=== PATIENT | female | born 1985 | race Caucasian/White ===

== ENCOUNTER 2025-07-06 11:59 | Emergency (ER) | payer MEDICARE, MEDICAID, SELFPAY ==
[2025-07-06 12:05] VITALS: PULSE 97; RESP 22; TEMP 36.7; O2SAT 99
[2025-07-06] MEDS: Methadone Liquid 10 MG/ML 180 MG PO (13:29)
[2025-07-06 13:52] VITALS: BP 132/89; RESP 22; O2SAT 97
--- NOTE | 2025-07-07 08:49 | ED.GENADUL_ITS ---
Discharge Plan Disposition Patient Disposition: Home Condition: Stable Discharge Details Clinical Impression: Opiate withdrawal Primary Care Provider: Lluvia Wright ED Provider: Tara Drummond Home Meds and New Rx's Prescriptions: Continued methadone 10 mg/mL concentrate 180 mg PO DAILY Discharge Instructions Instructions: Prescription Drug Withdrawal (DC) Additional Instructions: You have been given your dose of methadone today Please follow-up with the clinic tomorrow Return earlier should you have new or worsening complaints Referrals: Lluvia Wright [Primary Care Provider, Medicine] Discharge Data Discharge Date/Time-TO BE ENTERED AT DEPARTURE: 07/06/25 14:23 HPI General Date/Time Provider Initiated Documentation: 07/06/25 12:21 . HPI Narrative: This 39-year-old female presents with acute opiate withdrawal. She states she feels like she has bugs crawling all over her . She states she is sweaty and feels nauseous and vomited once. Secondary to transportation issues she was unable to go to the methadone clinic yesterday and missed the appointment today and was told to come to the emergency department for her dose. She goes to the [facility] in [place]. She denies any additional substance use. Denies any chance of chest pain, shortness of breath, or any additional complaints at this time. Related Data Home Medications ?Medication ?Instructions ?Recorded ?Confirmed methadone 10 mg/mL oral concentrate 180 mg PO DAILY 07/06/25 General Stated Complaint: DrugWithdr/MAT VILLA: 3 Exam Narrative Exam Narrative: Alert, agitated, diaphoretic, anxious cardiac rate rhythm regular no respiratory distress no abdominal tenderness ambulatory with steady gait oriented x 3 Course Vital Signs Vital signs: Vital Signs Temperature 36.7 C 07/06/25 12:05 Pulse 97 H 07/06/25 12:05 Respiratory Rate 22 07/06/25 12:05 Pulse Oximetry 99 07/06/25 12:05 Temperature 36.7 C 07/06/25 12:05 Temperature Source Oral 07/06/25 12:05 Pulse 97 H 07/06/25 12:05 Respiratory Rate 22 07/06/25 13:52 Respiratory Pattern Normal 07/06/25 13:00 Blood Pressure 132/89 07/06/25 13:52 Blood Pressure Mean 103 07/06/25 13:52 Pulse Oximetry 97 07/06/25 13:52 Oxygen Delivery Method Room Air 07/06/25 13:52 Oxygen Flow Rate 0 07/06/25 13:52 Comment unable to get BP patient not able to sit still 07/06/25 12:05 Medical Decision Making 39-year-old female presenting with acute opiate withdrawal secondary to missing 2 doses of methadone. Her dose of 180 mg was confirmed with the [facility] clinic and was administered in the emergency department. This administration she was observed for approximately half an hour and her symptoms abated. She is feeling significant improvement and requesting discharge home. We discussed transportation and the importance of going to the [facility] clinic tomorrow. Return precautions reviewed and patient expressed understanding PFSH All Active Problems (Updated 07/06/25 @ 13:46 by EVA Oliver) Opiate withdrawal (Acute) Social History Smoking/Tobacco Use Status: Current every day Tobacco Type: cigarettes Smoking risk assessment performed?: Yes Alcohol Intake: former Substance use type: does not use
== END 2025-07-06 14:23 | disposition home or self-care (01) ==
PROVIDERS: Emergency Provider Physician Assistant; PCP Family Medicine
DX: F11.93 Opioid use, unspecified with withdrawal (principal); R11.2 Nausea with vomiting, unspecified
CPT/HCPCS: 99283 ×2

== ENCOUNTER 2025-08-23 10:40 | Emergency (ER) | payer SELFPAY ==
[2025-08-23 10:49] VITALS: BP 184/82; PULSE 87; RESP 18; TEMP 36.9; O2SAT 98
--- NOTE | 2025-08-23 15:09 | ED.GENADUL_ITS ---
Discharge Plan Discharge Details Chief Complaint: DrugWithdr/MAT Primary Care Provider: Lluvia Wright ED Provider: Tara Drummond Home Meds and New Rx's Prescriptions: No Action methadone 10 mg/mL concentrate 180 mg PO DAILY HPI General Date/Time Provider Initiated Documentation: 08/23/25 10:59 . HPI Narrative: 39-year-old female presenting for methadone administration. States her last dose was yesterday. Patient reportedly missed her dosing today as she thought the clinic was open until 1130 and the hours were abbreviated. Denies any current complaints or use of illicit substances. Related Data Home Medications ?Medication ?Instructions ?Recorded ?Confirmed methadone 10 mg/mL oral concentrate 180 mg PO DAILY 08/23/25 Allergies Allergy/AdvReac Type Severity Reaction Status Date / Time No Known Allergies Allergy Unverified 08/23/25 10:51 General Stated Complaint: DrugWithdr/MAT VILLA: 4 Exam Narrative Exam Narrative: Alert, oriented, no acute distress answering questions appropriately Course Vital Signs Vital signs: Vital Signs Temperature 36.9 C 08/23/25 10:49 Pulse 87 08/23/25 10:49 Respiratory Rate 18 08/23/25 10:49 Blood Pressure 184/82 H 08/23/25 10:49 Pulse Oximetry 98 08/23/25 10:49 Temperature 36.9 C 08/23/25 10:49 Pulse 87 08/23/25 10:49 Respiratory Rate 18 08/23/25 10:49 Blood Pressure 184/82 H 08/23/25 10:49 Pulse Oximetry 98 08/23/25 10:49 Pain Level 0 08/23/25 10:49 Medical Decision Making We attempted to contact [facility] to confirm methadone dosing. Patient came via From [place] and was unable to continue to wait in our facility. There is approximately 45-minute delay and we had not received confirmation call. Unfortunately patient had to leave secondary to having a cab and transportation issues. She did not receive her dose of methadone secondary to time constraints and walked out of the hospital stating you will see me back in a body bag . Patient walked out at this moment alert, oriented, decisional capacity I was unable to get any additional information. PFSH Social History Smoking/Tobacco Use Status: Current every day Tobacco Type: cigarettes Smoking risk assessment performed?: Yes Alcohol Intake: former Substance use type: does not use
== END 2025-08-23 12:05 | disposition left against medical advice (07) ==
LOC: ER 11:42
PROVIDERS: Emergency Provider Physician Assistant; PCP Family Medicine
DX: Z53.21 Procedure and treatment not carried out due to patient leaving prior to being seen by health care provider (principal)

== ENCOUNTER 2025-09-24 12:14 | Emergency (ER) | payer MEDICARE, MEDICAID, SELFPAY ==
[2025-09-24 12:26] VITALS: BP 128/80; PULSE 90; RESP 20; TEMP 37.1; O2SAT 95
[2025-09-24 12:30] VITALS: BP 128/80; PULSE 90; RESP 20; TEMP 37.1; O2SAT 95
--- NOTE | 2025-09-24 12:30 | RT.EKG_ITS ---
APPROVED REPORT Exam: Resting ECG Reason for Exam: methadone Patient Location: E HR:75 bpm ECG Measurements Heart Rate 75 AXIS MD 146 P 63 QRSd 106 QRS 3 QT 351 T 87 QTc 393 Conclusion Sinus rhythm...normal P axis, V-rate 60- 99 Probable left atrial enlargement...P >50mS, <-0.10mV V1 Nonspecific T abnormalities, lateral leads...T <-0.10mV, I aVL V5 V6
[2025-09-24 12:58] LABS: Abs Immature Grans 0.13 10^3/uL (0.0-0.06); HCT 36.2 % (36.0-46.0); HGB 12.4 g/dL (11.2-15.7); Immature Grans % 1.4 %; MCH 30.8 pg (27.0-33.0); MCHC 34.3 % (32.0-36.0); MCV 90 fL (80-95); MPV 9.0 fL (8.0-11.0); Platelet Count 356 10^3/uL (130-400); RBC 4.03 10^6/uL (3.93-5.22); RDW 13.1 % (11.7-14.6); RDW-SD 43.2 fL; WBC 9.52 10^3/uL (4.4-10.8)
[2025-09-24 13:16] LABS: Magnesium 1.6 mg/dL (1.6-2.6)
[2025-09-24 13:28] LABS: ALT 28 U/L (10-49); AST 28 U/L (<34); Albumin 4.3 g/dL (3.4-5.0); Alkaline Phosphatase 93 U/L (46-116); Anion Gap 9.5 mmol/L (3-11); BUN 9 mg/dL (9-23); Bilirubin, Total 0.30 mg/dL (0.2-1.2); CO2 23.5 mmol/L (20.0-31.0); Calcium 9.4 mg/dL (8.3-10.6); Chloride 104 mmol/L (98-107); Glucose 121 mg/dL (74-106); Potassium 2.9 mmol/L (3.5-5.1); Sodium 137 mmol/L (136-145); TSH (W/Ref FT4) 0.73 uIU/mL (0.55-4.78); Total Protein 7.8 g/dL (5.7-8.2)
[2025-09-24 13:52] LABS: Cannabinoids THC Negative (Negative)
[2025-09-24 13:52] LABS: Acetaminophen < 2 ug/mL (10-20)
[2025-09-24] MEDS: POTASSIUM CHLORIDE 20 MEQ/100 ML BAG 50 MEQ IV_INF (14:11)
[2025-09-24] MEDS: Potassium Chloride 20 MEQ TABCR PO (14:18)
[2025-09-24 14:26] LABS: COVID-19 PCR Negative (Negative); RSV PCR Negative (Negative)
[2025-09-24] MEDS: Methadone Liquid 10 MG/ML 180 MG PO (14:30)
--- NOTE | 2025-09-24 14:30 | DI.RAD_ITS ---
Exam(s) XR CHEST 2V PA LATERAL EXAM: XR CHEST 2V PA LATERAL CLINICAL HISTORY: cough. TECHNIQUE: 2D digital imaging was performed. COMPARISON: No exams were available for comparison FINDINGS: 2 views: Heart size is normal. The mediastinum is not widened. Lungs are clear. No infiltrates nor pleural effusions. IMPRESSION: No acute pulmonary findings. DATA REPOSITORY: RADIATION DOSE DELIVERED:
--- NOTE | 2025-09-24 14:35 | W.ED.GENAD ---
Discharge Plan Disposition Patient Disposition: Home Condition: Stable Discharge Details Clinical Impression: Methadone withdrawal, Anxiety, Hypokalemia, Cough Primary Care Provider: Lluvia Wright ED Provider: Juni Kilgore Home Meds and New Rx's Prescriptions: Continued methadone 10 mg/mL concentrate 180 mg PO DAILY ibuprofen 800 mg tablet 800 mg PO BID PRN Patient Comments: TAKE 1 TABLET BY MOUTH TWICE DAILY NEEDED FOR PAIN. CONTACT CLINIC TO SCHEDULE AN APPOINTMENT prochlorperazine maleate 10 mg tablet 10 mg PO TID PRN gabapentin 800 mg tablet 800 mg PO TID Patient Comments: TAKE 1 TABLET BY MOUTH THREE TIMES DAILY pantoprazole 40 mg tablet,delayed release (DR/EC) 40 mg PO ONCE Patient Comments: take 1 tablet by mouth once daily mirtazapine 45 mg tablet 45 mg PO DAILY Patient Comments: take 1 tablet by mouth daily metoprolol succinate 25 mg tablet extended release 24 hr 25 mg PO DAILY Patient Comments: take 1 tablet by mouth once daily lisinopril 40 mg tablet 40 mg PO DAILY Patient Comments: take 1 tablet by mouth once daily prazosin 2 mg capsule 2 mg PO QHS Patient Comments: take 1 capsule by mouth daily at bedtime dextroamphetamine-amphetamine [Adderall] 30 mg tablet 30 mg PO BID Rx Instructions: administer doses at least 4-6 hours apart Discharge Instructions Instructions: Hypokalemia, Methadone Additional Instructions: Please take your medications including antihypertensives as prescribed. You are welcome to go to [facility] for methadone dosing tomorrow from 6 AM till 10 AM. Please stop taking cough medicines. Please follow-up with your primary care physician. Return to the emergency department immediately for any worsening or new concerning symptoms. Stand Alone Forms: Portal Information HPI General Mode of arrival: ambulatory. Date/Time Provider Initiated Documentation: 09/24/25 12:21. Limitations to Documentation: no limitations. Information obtained by: patient. HPI Narrative: HISTORY OF PRESENT ILLNESS This is a 39-year-old female with a history of multiple sclerosis, substance abuse, on methadone, presenting from methadone clinic with anxiety, complaint of opioid withdrawal, recent respiratory illness with cough. Patient referred by methadone clinic provider with concern for potential serotonin syndrome or other toxidrome. Patient reports that she has been unwell since 09/22/2025, with symptoms including a persistent cough and congestion. She sought medical attention at [facility] on 09/22/2025 due to these symptoms and was diagnosed with rhinovirus. Patient states she continues to have cough and she experiences shortness of breath upon exertion. A CT scan performed on 09/22/2025 revealed no abnormalities per her report. She has been self-medicating with DayQuil and NyQuil every 4 hours for the past week, which she finds beneficial in reducing her cough frequency. Her last dose of these medications was taken this morning. The patient is currently experiencing withdrawal symptoms from methadone, having missed her doses on 09/20/2025 and 09/23/2025. She reports no use of illicit substances during this period. She smokes cigarettes but does not consume alcohol. She is on Adderall. Patient denies changes in her medication. No herbal supplements. She has been taking same dose of mirtazapine for years. She also reports high levels of anxiety and stress, which she believes are exacerbated by her current situation. She has been under significant stress for the past two weeks, which has affected her ability to concentrate. She mentions transportation problems as a significant factor contributing to her anxiety. She has a history of multiple sclerosis (MS), which occasionally causes involuntary movements in her hands and feet. These symptoms were particularly pronounced on 09/22/2025. Patient has not been taking antihypertensives as prescribed. Related Data Home Medications Medication Instructions Recorded Confirmed methadone 10 mg/mL oral concentrate 180 mg PO DAILY 07/06/25 09/24/25 dextroamphetamine-amphetamine 30 30 mg PO BID 09/24/25 09/24/25 mg tablet (Adderall) gabapentin 800 mg tablet 800 mg PO TID 09/24/25 09/24/25 ibuprofen 800 mg tablet 800 mg PO BID PRN 09/24/25 09/24/25 lisinopril 40 mg tablet 40 mg PO DAILY 09/24/25 09/24/25 metoprolol succinate 25 mg 25 mg PO DAILY 09/24/25 09/24/25 tablet,extended release 24 hr mirtazapine 45 mg tablet 45 mg PO DAILY 09/24/25 09/24/25 pantoprazole 40 mg tablet,delayed 40 mg PO ONCE 09/24/25 09/24/25 release prazosin 2 mg capsule 2 mg PO QHS 09/24/25 09/24/25 prochlorperazine maleate 10 mg 10 mg PO TID PRN 09/24/25 09/24/25 tablet Allergies Allergy/AdvReac Type Severity Reaction Status Date / Time No Known Allergies Allergy Unverified 08/23/25 10:51 General Stated Complaint: RespSymp VILLA: 3 Review of Systems All systems reviewed & are unremarkable except as noted in HPI and below Respiratory Respiratory: Reports cough Psychiatric Psychiatric: Reports anxiety Course Vital Signs Vital signs: Vital Signs Temperature 37.1 C 09/24/25 12:26 Pulse 90 09/24/25 12:26 Respiratory Rate 20 09/24/25 12:26 Blood Pressure 128/80 09/24/25 12:26 Pulse Oximetry 95 09/24/25 12:26 Temperature 37.1 C 09/24/25 12:30 Temperature Source Oral 09/24/25 12:30 Pulse 90 09/24/25 12:30 Respiratory Rate 20 09/24/25 12:30 Respiratory Effort Normal 09/24/25 12:59 Blood Pressure 128/80 09/24/25 12:30 Blood Pressure Position Sitting 09/24/25 12:30 Pulse Oximetry 95 09/24/25 12:30 Oxygen Delivery Method Room Air 09/24/25 12:30 Oxygen Flow Rate 0 09/24/25 12:30 Pain Level 8 09/24/25 12:30 Lab/Test Results Lab/Test Results: Laboratory Tests Range/Units 09/24/25 09/24/25 09/24/25 12:50 13:18 13:35 WBC (4.4-10.8) 10^3/uL 9.52 RBC (3.93-5.22) 10^6/uL 4.03 Hgb (11.2-15.7) g/dL 12.4 Hct (36.0-46.0) % 36.2 MCV (80-95) fL 90 MCH (27.0-33.0) pg 30.8 MCHC (32.0-36.0) % 34.3 RDW (11.7-14.6) % 13.1 Plt Count (130-400) 10^3/uL 356 MPV (8.0-11.0) fL 9.0 Immature Gran % % 1.4 Neutrophils % % 54.0 Lymphocytes % % 31.2 Monocytes % % 7.5 Eosinophils % % 5.3 Basophils % % 0.6 Nucleated RBC % (0.0-0.3) % 0.0 Absolute Neutrophils (1.2-6.7) 10^3/uL 5.15 Absolute Lymphocytes (1.2-3.4) 10^3/uL 2.97 Absolute Monocytes (0.1-0.8) 10^3/uL 0.71 Absolute Eosinophils (0.0-0.7) 10^3/uL 0.50 Absolute Basophils (0.0-0.2) 10^3/uL 0.06 Sodium (136-145) mmol/L 137 Potassium (3.5-5.1) mmol/L 2.9 L Chloride (98-107) mmol/L 104 Carbon Dioxide (20.0-31.0) mmol/L 23.5 Anion Gap (3-11) mmol/L 9.5 BUN (9-23) mg/dL 9 Creatinine (0.55-1.02) mg/dL 0.8 Est GFR (CKD-EPI 2020) (mL/min/1.73m2) 85.68 Glucose (74-106) mg/dL 121 H Calcium (8.3-10.6) mg/dL 9.4 Magnesium (1.6-2.6) mg/dL 1.6 Total Bilirubin (0.2-1.2) mg/dL 0.30 AST (<34) U/L 28 ALT (10-49) U/L 28 Alkaline Phosphatase (46-116) U/L 93 Total Protein (5.7-8.2) g/dL 7.8 Albumin (3.4-5.0) g/dL 4.3 TSH (0.55-4.78) uIU/mL 0.73 Urine Opiates Screen (Negative) Negative Urine Methadone Screen (Negative) Positive A Acetaminophen (10-20) ug/mL < 2 L Ur Barbiturates Screen (Negative) Negative Ur Tricyclics Screen (Negative) Positive A Ur Amphetamines Screen (Negative) Positive A U Benzodiazepines Scrn (Negative) Positive A Urine Cocaine Screen (Negative) Negative U Cannabinoids Screen (Negative) Negative COVID-19 Source Nasopharynx SARS-CoV-2 (PCR) (Negative) Negative Influenza Type A (PCR) (Negative) Negative Influenza Type B (PCR) (Negative) Negative RSV (PCR) (Negative) Negative POC- Test(urine) Negative Medical Decision Making ASSESSMENT AND PLAN Initial Assessment: 30-year-old female presenting with left-sided chest pain, cough, congestion, methadone withdrawal symptoms, and irregular hyperkinetic movements. Reports anxiety exacerbated by transportation issues and recent life stressors. Patient notes movements are chronic and intermittent and worse with anxiety. Differential Diagnosis: - URI, rhinovirus: Recent diagnosis; cough and congestion. Consider pneumonia. - Methadone withdrawal: Missed doses Saturday and ; experiencing withdrawal symptoms; plan to discuss resumption with Dr. Amin. - Anxiety: High levels reported; exacerbated by transportation issues and life stressors; plan to address anxiety management. - Considered serotonin syndrome: no significant overdoses, does not have classic signs. - Consider anticholinergic toxicity given utilization of unknown cough medicine formulation including potential Benadryl. ED Course: - Chest x-ray to assess for pneumonia was reviewed and interpreted by radiology: IMPRESSION:No acute pulmonary findings. - I called and spoke with patient's methadone clinic provider, Dr. Amin, discussed ED presentation, she notes methadone dose of 180 mg daily and confirmed the patient has not had her dose today. Will provide prescribed dose. - Labs reviewed and hypokalemia noted. Will give oral and IV replacement. - Patient reassessed after methadone and symptoms significantly improved. Blood pressure improved. Patient feeling better. - Plan for discharge with close outpatient follow-up. Usual and customary discharge instructions were reviewed with the patient. Patient advised to stop taking cough medicine. Patient was advised to follow-up with her PCP. Clinical Impression: - Rhinovirus - Methadone withdrawal - Anxiety - Hypokalemia Disposition: - Follow-Up: Discussion with Dr. Amin regarding methadone resumption. Patient Education: Advised to discontinue DayQuil and NyQuil. Recommended ibuprofen or Tylenol for symptom relief. This document was written with the assistance of DESMOND Kiser. The patient consented to its use. Lab Data Lab results reviewed: Yes I reviewed the patient's lab results. Labs: Laboratory Tests Range/Units 09/24/25 09/24/25 09/24/25 12:50 13:18 13:35 WBC (4.4-10.8) 10^3/uL 9.52 RBC (3.93-5.22) 10^6/uL 4.03 Hgb (11.2-15.7) g/dL 12.4 Hct (36.0-46.0) % 36.2 MCV (80-95) fL 90 MCH (27.0-33.0) pg 30.8 MCHC (32.0-36.0) % 34.3 RDW (11.7-14.6) % 13.1 Plt Count (130-400) 10^3/uL 356 MPV (8.0-11.0) fL 9.0 Immature Gran % % 1.4 Neutrophils % % 54.0 Lymphocytes % % 31.2 Monocytes % % 7.5 Eosinophils % % 5.3 Basophils % % 0.6 Nucleated RBC % (0.0-0.3) % 0.0 Absolute Neutrophils (1.2-6.7) 10^3/uL 5.15 Absolute Lymphocytes (1.2-3.4) 10^3/uL 2.97 Absolute Monocytes (0.1-0.8) 10^3/uL 0.71 Absolute Eosinophils (0.0-0.7) 10^3/uL 0.50 Absolute Basophils (0.0-0.2) 10^3/uL 0.06 Sodium (136-145) mmol/L 137 Potassium (3.5-5.1) mmol/L 2.9 L Chloride (98-107) mmol/L 104 Carbon Dioxide (20.0-31.0) mmol/L 23.5 Anion Gap (3-11) mmol/L 9.5 BUN (9-23) mg/dL 9 Creatinine (0.55-1.02) mg/dL 0.8 Est GFR (CKD-EPI 2020) (mL/min/1.73m2) 85.68 Glucose (74-106) mg/dL 121 H Calcium (8.3-10.6) mg/dL 9.4 Magnesium (1.6-2.6) mg/dL 1.6 Total Bilirubin (0.2-1.2) mg/dL 0.30 AST (<34) U/L 28 ALT (10-49) U/L 28 Alkaline Phosphatase (46-116) U/L 93 Total Protein (5.7-8.2) g/dL 7.8 Albumin (3.4-5.0) g/dL 4.3 TSH (0.55-4.78) uIU/mL 0.73 Urine Opiates Screen (Negative) Negative Urine Methadone Screen (Negative) Positive A Acetaminophen (10-20) ug/mL < 2 L Ur Barbiturates Screen (Negative) Negative Ur Tricyclics Screen (Negative) Positive A Ur Amphetamines Screen (Negative) Positive A U Benzodiazepines Scrn (Negative) Positive A Urine Cocaine Screen (Negative) Negative U Cannabinoids Screen (Negative) Negative COVID-19 Source Nasopharynx SARS-CoV-2 (PCR) (Negative) Negative Influenza Type A (PCR) (Negative) Negative Influenza Type B (PCR) (Negative) Negative RSV (PCR) (Negative) Negative PFSH All Active Problems (Updated 09/24/25 @ 16:13 by Juni Kilgore MD) Cough (Acute) Hypokalemia (Acute) Anxiety (Chronic) Methadone withdrawal (Acute) Social History Smoking/Tobacco Use Status: Current every day Tobacco Type: cigarettes Smoking risk assessment performed?: Yes Alcohol Intake: former Drug use: Current Sobriety Substance use type: does not use Details: Pt on methadone. Denies any other drug use. Housing: apartment
[2025-09-24 15:38] VITALS: BP 103/64; PULSE 83; RESP 19; O2SAT 95
== END 2025-09-24 16:48 | disposition home or self-care (01) ==
PROVIDERS: Emergency Provider Student in an Organized Health Care Education/Training Program; PCP Family Medicine
DX: F11.93 Opioid use, unspecified with withdrawal (principal); E87.6 Hypokalemia; F41.9 Anxiety disorder, unspecified; R05.9 Cough, unspecified
CPT/HCPCS: 99284 ×2; 81025; 80053; 80307; 87637; 93005; 71046; 80329; 83735; 84443; 85025; 93010; J3480